=== PATIENT | female | born 1980 | race African-American/Black ===

== ENCOUNTER 2020-08-09 10:39 | Emergency (ER) | payer OTHER ==
--- OUTSIDE RECORDS SUMMARY | 2020-08-09 10:44 | XMS REPORT | Continuity of Care Document ---
:1980 Author Organization [facility] t Address [address] [place] [place] [address] Care Team Providers Name Role Phone Phuong Mendoza DO Primary Care Physician Jason DO Attending Clinician Phuong Mendoza DO Attending Clinician JASON Attending Clinician Unavailable Maryse WIGGINS, Varun Attending Clinician Payers Payer Name Policy Type Policy Effective Date Expiration Date Sour ce Number [facility] [id number] 2020 [facility] 0 00:00:[address] [facility] CHOICE [id number] 2020-Nhrhepf986- [id number]/POS [facility] [id number] 2020 [place] CHOICE EXCHANGECOM 0 00:00:00 Method ist HLTH [facility] EXCHANGE [id number] 400 2020-PresentE xchange Problems Condition Condition Condition Status Onset Resolution Last Treating Co mments Source Name Details Category Date Date Treatment Clinician Date Type 2 Type 2 Disease Active 2017-03 [place] diabetes diabetes 0-16 Method i mellitus mellitus 00:00: st with with 00 complicati complicati on, on, without without long-term long-term current current use of use of insulin insulin Allergies, Adverse Reactions, Alerts This patient has no known allergies or adverse reactions. Family History Family Member Diagnosis Comments Start Date Stop Date Source Natural father No Known Problems Jelena artis [facility] Natural mother Diabetes [facility] thodist Social History Social Habit Start Date Stop Date Quantity Comments Source Sex Assigned At [facility] Exposure to Not sure [facility] - SARS-CoV2 [facility] (event) Tobacco use and 2017-12-14 2017-12-14 Never used [facility] ethodist exposure 00:00:00 00:00:00 Alcohol intake 2017-12-14 2017-12-14 Current [facility] thodist 00:00:00 00:00:00 non-drinker of alcohol (finding) Smoking Status Start Date Stop Date Source Never smoker [place] Methodis Medications Ordered Filled Start Stop Current Ordering Indication Dosage Frequency Signature Comments Components Source Medication Medication Date Date Medication? Clinician (SIG) Name Name sulfamethox 2020- No 1{tbl} Q.5D Take [address] azole-trime -12 04-10 tablet by Kelly kes - thoprim 02:48: 00:00 mouth 2 Medica l (BACTRIM,SE 28 :00 (two) Center PTRA) times 400-80 mg daily. per tablet metFORMIN Yes 500mg Take [address] [facility] (GLUCOPHAGE 6-10 mg by [facility] - ) 500 MG 02:39: mouth 2 Medica l tablet 36 (two) Center times daily with breakfast and dinner. diphenhydrA 2020- Yes 25mg Take [address] [facility] MINE 6- 07-10 tablet (25 [facility] - (BENADRYL) 00:00: 23:59 mg total) edical 25 mg 00 :00 by mouth Center tablet every 6 (six) hours as needed for Itching or Allergies for up to 30 days. clindamycin 2020- Yes 300mg Q.[id number] Take [address] [facility] (CLEOCIN) 6- 06-20 [id number] capsule [facility] - 300 MG 00:00: 23:59 3D (300 mg Medical capsule 00 :00 total) by Center mouth 3 (three) times daily for 10 days. famotidine 2020- Yes 40mg QD Take [address] [facility] [address] (PEPCID) 40 6- 06-15 tablet (40 L ukes - MG tablet 00:00: 23:59 mg total) Oh dical 00 :00 by mouth Center daily for 5 doses. metFORMIN 2020- Yes Type 2 1000mg Q.5D Take 2 [place] (GLUCOPHAGE 6-04 07-04 diabetes tablets Methodi ) 500 mg 00:00: 23:59 mellitus (1,[address] tablet 00 :00 with total) by complicatio mouth 2 n, without (two) long-term times a current use day with of insulin meals for ([facility]) 30 days. sulfamethox 2020- Yes 1{tbl} Q.5D Take 1 [place] azole-trime 6- 06-11 tablet by Oh thodi thoprim 00:00: 23:[address] (BACTRIM 00 :00 (two) SS) 400-80 times a mg per day for 7 tablet days. metFORMIN 2020- No Type 2 TAKE 1 Jelena ston (GLUCOPHAGE 3-05 06-04 diabetes TABLET(500 Methodi ) 500 mg 00:00: 00:00 mellitus MG) BY st tablet 00 :00 with MOUTH complicatio TWICE n, without DAILY WITH long-term MEALS current use of insulin ([facility]) metFORMIN 2020- No Type 2 TAKE 1 Jelena ston (GLUCOPHAGE 8-26 03-05 diabetes TABLET(500 Methodi ) 500 mg 00:00: 00:00 mellitus MG) BY st tablet 00 :00 with MOUTH complicatio TWICE n, without DAILY WITH long-term MEALS current use of insulin ([facility]) metFORMIN 2019- No Type 2 TAKE 1 Jelena ston (GLUCOPHAGE 2-28 08-26 diabetes TABLET(500 Methodi ) 500 mg 00:00: 00:00 mellitus MG) BY st tablet 00 :00 with MOUTH complicatio TWICE n, without DAILY WITH long-term MEALS current use of insulin ([facility]) Vital Signs Vital Name Observation Time Observation Value Comments Source Systolic blood 2020-08-08 02:29:00 132 mm[Hg] [facility] Diastolic blood 2020-08-08 02:29:00 79 mm[Hg] [facility] S t [facility] Heart rate 2020-08-08 02:29:00 112 /min ELIEZER [facility] Body temperature 2020-08-08 02:29:00 37.17 Saba [facility] Respiratory rate 2020-08-08 02:29:00 18 /min [facility] Oxygen saturation in 2020-08-08 02:29:00 100 /min [facility] - Arterial blood by Medical Ce nter Pulse oximetry Body weight 2020-08-07 22:49:00 78.472 kg [facility] Systolic blood 2020-08-02 22:17:00 156 mm[Hg] [place] pressure Diastolic blood 2020-08-02 22:17:00 70 mm[Hg] [place] [facility] pressure Heart rate 2020-08-02 22:00:00 106 /min [place] [facility] Respiratory rate 2020-08-02 22:00:00 17 /min [place] [facility] Oxygen saturation in 2020-08-02 22:00:00 99 /min [place] [facility] Arterial blood by Pulse oximetry Body temperature 2020-08-02 21:22:00 36.39 Saba Nicole [place] [facility] Procedures Procedure Date / Time Performing Clinician Source Performed POCT-GLUCOSE METER 2020-08-08 02:09:00 Jason, Will [facility] URINALYSIS W/ 2020-08-08 00:05:00 Jason, Will [facility] SCREEN, URINE 2020-08-08 00:05:00 Jason, Will [facility] CBC W/PLT COUNT & AUTO 2020-08-07 23:55:00 Jason, Will [facility] S [facility] DIFFERENTIAL [facility] BASIC METABOLIC PANEL 2020-08-07 23:55:00 Jason, Will [facility] () [facility] KETONE, BLOOD 2020-08-07 23:55:00 Jason, Will [facility] PH, VENOUS 2020-08-07 23:55:00 Jason, Will [facility] LACTIC ACID, VENOUS 2020-08-07 23:55:00 Jason, Will [facility] BLOOD CULTURE 2020-08-07 23:54:00 Jason, Will [facility] POCT-GLUCOSE METER 2020-08-07 22:58:[address] [facility] POC GLUCOSE 2020-08-02 21:46:00 Andrea Serra [place] [facility] Plan of Care Planned Activity Planned Date Details Comments Source Future Scheduled 2020-10-[address] [facility] - Test 00:00:00 (Season Ended) [code = [facility] INFLUENZA VACCINE (Season Ended)] Future Scheduled 2020-09-29 INFLUENZA VACCINE [place] Test 00:00:00 [code = INFLUENZA VACCINE] Future Scheduled 2020-03-[address] [facility] - Test 00:00:00 (12+) [code = [facility] DEPRESSION SCREENING (12+)] Future Scheduled 2000[facility]01[facility]01 [facility] malignant neoplasm of [facility] cervix (procedure) [code = 983765572] Future Scheduled 2000-01-01 Screening for [facility] thodist Test 00:00:00 malignant neoplasm of cervix (procedure) [code = 471433572] Future Scheduled 1997 DTAP/TDAP/TD VACCINES [facility] - Test 00:00:00 (1 - Tdap) [code = Medical C enter DTAP/TDAP/TD VACCINES (1 - Tdap)] Future Scheduled 1996 HEPATITIS C SCREENING [facility] - Test 00:00:00 [code = HEPATITIS C [facility] SCREENING] Future Scheduled 1996 Hepatitis C screening [place] Test 00:00:00 (procedure) [code = 995438908] Future Scheduled 1990 COVID-19 VACCINE (1) [facility] - Test 00:00:00 [code = COVID-[address] VACCINE (1)] Future Scheduled 1990 COVID-19 VACCINE (1) Jelena ston [facility] Test 00:00:00 [code = COVID-19 VACCINE (1)] Future Scheduled 1988 DIABETES: RETINAL EYE [place] Test 00:00:00 EXAM [code = DIABETES: RETINAL EYE EXAM] Future Scheduled 1988 DIABETIC FOOT EXAM [place] Test 00:00:00 [code = DIABETIC FOOT EXAM] Future Scheduled 1988 URINE MICROALBUMIN [place] Test 00:00:00 [code = URINE MICROALBUMIN] Encounters Start End Encounter Admission Attending Care Care Encounter Source Date/Time Date/Time Type Type Clinicians Facility Department ID 2020-08-02 2020-08-02 Emergency SANTOS SERRA 064 [id number] [place] 00:00:00 00:00:00 ANDREA [address] Results Test Description Test Time Test Comments Results Result Comments Source POC-Glucose meter 2020-08-08 02:21:00 Test Item Value Reference Range Interpretation Comme nts POC-Glucose Meter (test code = 326 mg/dL 70-110 H : TESTED AT [facility] [address]) [facility], [address]: Jelly Filter Tender/Techni tony ID = [id number] for Jeancarlos Chapa Lab Interpretation (test code = Abnormal 58537-9) [facility] [id number] 02:21:00 Test Item Value Reference Range Interpretation Comments POC-GLUCOSE METER 326 mg/dL 70-110 H : TESTED A T [facility] [address] (BEAKER) (test code = BERTNE R [facility], 1538) [address]: Jelly Filter Tender/Techni tony ID = [id number] for Jeancarlos Marquez CBC with platelet count + automated [id number] 01:45:00 Test Item Value Reference Range Interpretation Comments WBC (test code = 6690-2) 8.3 See_Comment [A utomated message] The system [employer] generated this result transmitted ref erence range: 3.5 - 10 .5 K/L. The refe rence range was not u sed to interpret this result as normal/abnor mal. RBC (test code = 789-8) 4.28 See_Comment [Au tomated message] The system [employer] generated this result transmitted ref erence range: 3.93 - 5 .22 M/L. The refe rence range was not u sed to interpret this result as normal/abnor mal. MCHC (test code = 786-4) 33.8 See_Comment [A utomated message] The system [employer] generated this result transmitted ref erence range: 32.2 - 3 5.5 GM/DL. The refe rence range was not u sed to interpret this result as normal/abnor mal. Hematocrit (test code = 36.7 % 34.1-44.9 4544-3) MCV (test code = 787-2) 85.7 fL 79.4-94.8 MCH (test code = 785-6) 29.0 pg 25.6-32.2 RDW (test code = 788-0) 12.6 % 11.7-14.4 Platelets (test code = 251 See_Comment [Aut omated message] 777-3) The system [employer] generated this result transmitted ref erence range: 150 - 45 0 K/CU MM. The referen ce range was not u sed to interpret this result as normal/abnor mal. MPV (test code = 12.0 fL 9.4-12.3 81423-5) % Neutros (test code = 86 % 429) % Lymphs (test code = 6 % 430) % Monos (test code = 3 % 431) % Eos (test code = 432) 3 % % Baso (test code = 437) 0 % # Neutros (test code = 7.13 See_Comment H [Aut omated message] 670) The system [employer] generated this result transmitted ref erence range: 1.56 - 6 .13 K/L. The refe rence range was not u sed to interpret this result as normal/abnor mal. # Lymphs (test code = 0.46 See_Comment L [Auto mated message] 414) The system [employer] generated this result transmitted ref erence range: 1.18 - 3 .74 K/L. The refe rence range was not u sed to interpret this result as normal/abnor mal. # Monos (test code = 0.22 See_Comment L [Autom ated message] 415) The system [employer] generated this result transmitted ref erence range: 0.24 - 0 .36 K/L. The refe rence range was not u sed to interpret this result as normal/abnor mal. # Eos (test code = 416) 0.24 See_Comment [Au tomated message] The system [employer] generated this result transmitted ref erence range: 0.04 - 0 .36 K/L. The refe rence range was not u sed to interpret this result as normal/abnor mal. # Baso (test code = 417) 0.00 See_Comment L [A utomated message] The system [employer] generated this result transmitted ref erence range: 0.01 - 0 .08 K/L. The refe rence range was not u sed to interpret this result as normal/abnor mal. Immature 2 % 0-1 H Granulocytes-Relative (test code = 2801) Lab Interpretation (test Abnormal code = 62404-9) [facility] W/PLT COUNT & AUTO [id number] 01:45:00 Test Item Value Reference Range Interpretation Comments WHITE BLOOD CELL COUNT (BEAKER) 8.3 K/ L 3.5-10.5 (test code = 775) RED BLOOD CELL COUNT (BEAKER) 4.28 M/ L 3.93-5.22 (test code = 761) HEMOGLOBIN (BEAKER) (test code = 12.4 GM/DL 11.2-15.7 410) HEMATOCRIT (BEAKER) (test code = 36.7 % 34.1-44.9 411) MEAN CORPUSCULAR VOLUME (BEAKER) 85.7 fL 79.4-94.8 (test code = 753) MEAN CORPUSCULAR HEMOGLOBIN 29.0 pg 25.6-32.2 (BEAKER) (test code = 751) MEAN CORPUSCULAR HEMOGLOBIN CONC 33.8 GM/DL 32.2-35.5 (BEAKER) (test code = 752) RED CELL DISTRIBUTION WIDTH 12.6 % 11.7-14.4 (BEAKER) (test code = 412) PLATELET COUNT (BEAKER) (test 251 K/CU MM 150-450 code = 756) MEAN PLATELET VOLUME (BEAKER) 12.0 fL 9.4-12.3 (test code = 754) NEUTROPHILS RELATIVE PERCENT 86 % (BEAKER) (test code = 429) LYMPHOCYTES RELATIVE PERCENT 6 % (BEAKER) (test code = 430) MONOCYTES RELATIVE PERCENT 3 % (BEAKER) (test code = 431) EOSINOPHILS RELATIVE PERCENT 3 % (BEAKER) (test code = 432) BASOPHILS RELATIVE PERCENT 0 % (BEAKER) (test code = 437) NEUTROPHILS ABSOLUTE COUNT 7.13 K/ L 1.56-6.13 H (BEAKER) (test code = 670) LYMPHOCYTES ABSOLUTE COUNT 0.46 K/ L 1.18-3.74 L (BEAKER) (test code = 414) MONOCYTES ABSOLUTE COUNT (BEAKER) 0.22 K/ L 0.24-0.36 L (test code = 415) EOSINOPHILS ABSOLUTE COUNT 0.24 K/ L 0.04-0.36 (BEAKER) (test code = 416) BASOPHILS ABSOLUTE COUNT (BEAKER) 0.00 K/ L 0.01-0.08 L (test code = 417) IMMATURE GRANULOCYTES-RELATIVE 2 % 0-1 H PERCENT (BEAKER) (test code = 2801) Basic Metabolic [id number] 00:32:00 Test Item Value Reference Range Interpretation Comments Sodium (test code = 126 meq/L 135-148 L 2951-2) Potassium (test code = 3.6 meq/L 3.6-5.5 2823-3) Chloride (test code = 94 meq/L 98-106 L 2075-0) CO2 (test code = 20 meq/L 24-32 L 2028-9) BUN (test code = 17 mg/dL 12-24 3094-0) Creatinine (test code = 0.77 mg/dL 0.5-1.2 2160-0) Glucose (test code = 491 mg/dL 70-110 HH 2345-7) Calcium (test code = 9.2 mg/dL 8.5-10.5 50995-2) EGFR (test code = [place] [address]-4) CLINICAL DATA T O CALCULATE ESTIM ATED GFR. Lab Interpretation Abnormal (test code = 09891-1) [facility] [id number] 00:32:00 Test Item Value Reference Range Interpretation Comments SODIUM (BEAKER) (test 126 meq/L 135-148 L code = 381) POTASSIUM (BEAKER) 3.6 meq/L 3.6-5.5 (test code = 379) CHLORIDE (BEAKER) 94 meq/L 98-106 L (test code = 382) CO2 (BEAKER) (test 20 meq/L 24-32 L code = 355) BLOOD UREA NITROGEN 17 mg/dL 12-24 (BEAKER) (test code = 354) CREATININE (BEAKER) 0.77 mg/dL 0.50-1.20 (test code = 358) GLUCOSE RANDOM 491 mg/dL 70-110 HH (BEAKER) (test code = 652) CALCIUM (BEAKER) 9.2 mg/dL 8.5-10.5 (test code = 697) EGFR (BEAKER) (test INSUFFIC IENT CLINICAL code = 1092) DATA TO CALCULA TE ESTIMATED GFR. Urinalysis w/[id number] 00:27:00 Test Item Value Reference Range Interpretation Comments Color, UA (test code = Yellow 5778-6) Clarity, UA (test code = Hazy 5767-9) Specific [place], UA 1.015 1.001-1.035 (test code = 5811-5) pH, UA (test code = 6.0 5.0-8.0 5803-2) Protein, UA (test code = Negative Negative 69210-6) Glucose, UA (test code = 500 mg/dL Negative A 365) Ketones, UA (test code = 40 mg/dL Negative A 2514-8) Bilirubin, UA (test code Negative Negative = 75818-5) Blood, UA (test code = Negative Negative 17074-1) Nitrite, UA (test code = Negative Negative 5802-4) Leukocytes, UA (test Negative Negative code = 5799-2) Urobilinogen, UA (test 0.2 mg/dL 0.2-1 code = 13652-3) Yeast (test code = Few 91595-3) RBC, UA (test code = None Seen See_Comment [Autom ated message] 799-7) The system [employer] generated this result transmit ayesha reference range : /HPF. The refer ence range was not u sed to interpret th is result as normal/abnormal . WBC, UA (test code = None Seen See_Comment [Autom ated message] 75681-9) The system [employer] generated this result transmit ayesha reference range : /HPF. The refer ence range was not u sed to interpret th is result as normal/abnormal . SQUAMOUS EPITHELIAL 20-50 See_Comment [Automa ayesha message] (test code = 80241-8) The sy stem which generated this result transmit ayesha reference range : /HPF. The refer ence range was not u sed to interpret th is result as normal/abnormal . Specimen Source (test code = 2795) Lab Interpretation (test Abnormal code = 49009-7) [facility] [id number] 00:27:00 Test Item Value Reference Range Interpretation Comments COLOR (BEAKER) (test code = Yellow 470) CLARITY (BEAKER) (test code = Hazy 469) SPECIFIC GRAVITY UA (BEAKER) 1.015 1.001-1.035 (test code = 468) PH UA (BEAKER) (test code = 6.0 5.0-8.0 467) PROTEIN UA (BEAKER) (test code Negative Negative = 464) GLUCOSE UA (BEAKER) (test code 500 mg/dL Negative A = 365) KETONES UA (BEAKER) (test code 40 mg/dL Negative A = 371) BILIRUBIN UA (BEAKER) (test Negative Negative code = 462) BLOOD UA (BEAKER) (test code = Negative Negative 461) NITRITE UA (BEAKER) (test code Negative Negative = 465) LEUKOCYTE ESTERASE UA (BEAKER) Negative Negative (test code = 466) UROBILINOGEN UA (BEAKER) (test 0.2 mg/dL 0.2-1.0 code = 463) YEAST (BEAKER) (test code = Few 1585) RBC UA-MANUAL (BEAKER) (test None Seen /HPF code = 1659) WBC UA-MANUAL (BEAKER) (test None Seen /HPF code = 1661) SQUAMOUS EPITHELIAL MANUAL 20-50 /HPF (BEAKER) (test code = 1663) SOURCE(BEAKER) (test code = 2795) screen, [id number] 00:26:00 Test Item Value Reference Range Interpretation Comments Preg Test, Ur (test code = 2112-1) Negative [facility], [id number] 00:26:00 Test Item Value Reference Range Interpretation Comments TEST URINE (BEAKER) (test Negative code = 583) Lactic acid, [id number] 00:22:00 Test Item Value Reference Range Interpretation Comments Lactate, Venous (test code = 1.60 mmol/L 0.5-2.2 2872) Lab Interpretation (test code = Normal 48473-3) [facility], [id number] 00:22:00 Test Item Value Reference Range Interpretation Comments LACTATE BLOOD VENOUS (2) (BEAKER) 1.60 mmol/L 0.50-2.20 (test code = 2872) Ketones, [id number] 00:09:00 Test Item Value Reference Range Interpretation Comments Ketones, Blood (test code = 1103) 1.9 mmol/L <0.4 H Lab Interpretation (test code = Abnormal 48419-8) [facility], [id number] 00:09:00 Test Item Value Reference Range Interpretation Comments KETONES, BLOOD (BEAKER) (test code 1.9 mmol/L <0.4 H = 1103) pH, [id number] 00:08:00 Test Item Value Reference Range Interpretation Comments pH, Chan (test code = 2746-6) 7.38 7.32-7.42 Lab Interpretation (test code = Normal 14879-5) [facility], [id number] 00:08:00 Test Item Value Reference Range Interpretation Comments PH VENOUS (BEAKER) (test code = 701) 7.38 7.32-7.42 POCT-GLUCOSE [id number] 23:09:00 Test Item Value Reference Range Interpretation Comments POC-GLUCOSE METER 482 mg/dL 70-110 HH : TESTED A T [facility] 6720 (BEAKER) (test code = JOSE COBURN MD, 1538) [address]: Jelly Filter Tender/Techni tony ID = [id number] for Jeancarlos Marquez POC [id number] 21:50:04 Test Item Value Reference Range Interpretation Comments POC glucose (test code 328 mg/dL 65-99 H Opera gabriela Name: Weelva = 47828-8) YangDevice ID : [id number] able: [facility] Notified way inspector Interpretation Abnormal (test code = 11996-2) [place]
[2020-08-09] MEDS ORDERED: LIDOCAINE 1% MPF 5 ML VIAL ONE (11:52)
--- NOTE | 2020-08-09 12:56 | ER ---
Nurse's Notes [facility] Name: Jose Mckenzie Age: 39 yrs Sex: Female : 1980 Arrival Date: 08/09/2020 Time: 10:45 Bed 23 Private MD: Diagnosis: Cutaneous abscess of head [any part, except face] Presentation: 08/09 11:25 Chief complaint: Patient states: abscess to back of neck , has been seen by a couple iw different ER's is currently on Clindamycin, not getting better, feels like swelling has increased and it's more painful. Coronavirus screen: At this time, the client does not indicate any symptoms associated with coronavirus-19. Ebola Screen: Patient negative for fever greater than or equal to 101.5 degrees Fahrenheit, and additional compatible Ebola Virus Disease symptoms Patient denies exposure to infectious person. Patient denies travel to an Ebola-affected area in the 21 days before illness onset. No symptoms or risks identified at this time. Initial Sepsis Screen: Does the patient meet any 2 criteria? No. Patient's initial sepsis screen is negative. Does the patient have a suspected source of infection? No. Patient's initial sepsis screen is negative. Risk Assessment: Do you want to hurt yourself or someone else? Patient reports no desire to harm self or others. Onset of symptoms was August 03, 2019. 11:25 Method Of Arrival: Ambulatory iw 11:25 Acuity: KEVIN 4 iw Triage Assessment: 11:30 General: Appears in no apparent distress. Behavior is calm, cooperative. 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 - Social history:: Smoking status: Patient denies any tobacco usage or history of. Screenin:41 Abuse screen: Denies threats or abuse. Denies injuries from another. Nutritional iw screening: No deficits noted. Tuberculosis screening: No symptoms or risk factors identified. Fall Risk None identified. Assessment: 11:30 General: Appears in no apparent distress. Behavior is calm, cooperative. Pain: iw Complains of pain in scalp. Neuro: Level of Consciousness is awake, alert, obeys commands, Oriented to person, place, time, situation, Moves all extremities. Full function. Cardiovascular: Patient's skin is warm and dry. Respiratory: Respiratory effort is even, unlabored, Respiratory pattern is regular. GI: No signs and/or symptoms were reported involving the gastrointestinal system. Derm: Skin is healthy with good turgor, Abscess located on right posterior aspect of neck is quarter sized, has purulent drainage, was lanced by patient prior to arrival. Musculoskeletal: Range of motion: intact in all extremities. Vital Signs: 11:25 BP 183 / 90; Pulse 118; Resp 18; Pulse Ox 98% on R/A; Weight 78.47 kg; Height 5 ft. 3 iw in. (160.02 cm); Pain 8/10; 11:35 Pulse 105; iw 11:25 Body Mass Index 30.65 (78.47 kg, 160.02 cm) iw ED Course: 10:45 Patient arrived in ED. as 11:19 [facility]au[facility] Barton F[facility]-C [facility]. kb 11:19 Neil De La Garza MD is Attending Physician. kb 11:25 Marline Squires, SONNY is Primary Nurse. iw 11:28 Triage completed. iw 11:30 Arm band placed on. iw 11:30 Patient has correct armband on for positive identification. iw 13:20 Assist provider with I \T\ D: of an abscess on Set up I\T\D tray. Performed by Pauly BELTRAN Culture sent to lab. Dressing with 4X4s, tape Patient tolerated well. Patient did not have IV access during this emergency room visit. Administered Medications: No medications were administered Outcome: 12:55 Discharge ordered by . kb 13:41 Discharged to home ambulatory, with family. iw 13:41 Condition: good 13:41 Discharge instructions given to patient, family, Instructed on discharge instructions, follow up and referral plans. medication usage, Demonstrated understanding of instructions, follow-up care, medications, wound care, Prescriptions given X 1. 13:42 Patient left the ED. aj1 Addendum: 08/12/2020 07:34 Addendum: Culture Results: Positive wound culture. No further action required. Other: i w pt is currently on Clindamycin, no further intervention needed . Signatures: Pauly Barton FNP-C KAVYA-Yuly Gibson RN RN aj1 Divya Cornell as Marline Squires RN RN iw Corrections: (The following items were deleted from the chart) 07:37 07:34 Addendum: Culture Results: rosemarie houston
--- NOTE | 2020-08-09 12:56 | EDPHYS ---
Physician Documentation [facility] Name: Jose Mckenzie Age: 39 yrs Sex: Female : 1980 Arrival Date: 08/09/2020 Time: 10:45 Bed 23 Private MD: ED Physician Neil De La Garza HPI: 08/09 19:44 This 39 yrs old Black Female presents to ER via Ambulatory with complaints of Boil. kb 19:44 The patient presents with an abscess of the right base of the skull. Description: kb draining, erythematous, swollen. Onset: The symptoms/episode began/occurred last week. Possible cause(s): unknown. Associated signs and symptoms: Pertinent positives: discharge, drainage, erythema, swelling. Modifying factors: the symptoms are alleviated by nothing, the symptoms are aggravated by pressure, squeezing the lesion and expressing the contents, touching. Severity of symptoms: At their worst the symptoms were moderate, in the emergency department the symptoms are unchanged. The patient has not experienced similar symptoms in the past. The patient has been recently seen at the [facility] Emergency Department, last week, for similar complaints was given a prescription for antibiotics. 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 - Social history:: Smoking status: Patient denies any tobacco usage or history of. ROS: 19:43 Constitutional: Negative for fever, chills, and weight loss. kb 19:43 Skin: Positive for abscess, erythema, of the right base of the skull. 19:43 All other systems are negative. Exam: 19:42 Constitutional: This is a well developed, well nourished patient who is awake, alert, kb and in no acute distress. Head/Face: Normocephalic, atraumatic. ENT: Moist Mucous membranes Respiratory: Respirations even and unlabored. No increased work of breathing, no retractions or nasal flaring. MS/ Extremity: Pulses equal, no cyanosis. Neurovascular intact. Full, normal range of motion. Neuro: Awake and alert, GCS 15, oriented to person, place, time, and situation. Moves all extremities. Normal gait. Psych: Awake, alert, with orientation to person, place and time. Behavior, mood, and affect are within normal limits. 19:42 Skin: abscess, that is moderate sized, of the right base of the skull, with drainage, with fluctuance, with induration. Vital Signs: 11:25 BP 183 / 90; Pulse 118; Resp 18; Pulse Ox 98% on R/A; Weight 78.47 kg; Height 5 ft. 3 iw in. (160.02 cm); Pain 8/10; 11:35 Pulse 105; iw 11:25 Body Mass Index 30.65 (78.47 kg, 160.02 cm) iw Procedures: 19:42 I \T\ D: Incision and drainage was performed for an abscess of the right right base of kb the skull Prepped with Betadine, Anesthetized with 3 ml's 1% Lidocaine. Incised with #11 blade. Drained moderate amount purulent fluid. Dressing: sterile 4x4 gauze, the patient tolerated the procedure well. MDM: 11:19 Patient medically screened. 19:42 Data reviewed: vital signs, nurses notes. Data interpreted: Pulse oximetry: on room air kb is 98 %. Interpretation: normal. Counseling: I had a detailed discussion with the patient and/or guardian regarding: the historical points, exam findings, and any diagnostic results supporting the discharge/admit diagnosis, the need for outpatient follow up, a general surgeon, to return to the emergency department if symptoms worsen or persist or if there are any questions or concerns that arise at home. 08/09 12:39 Order name: Wound Culture 08/09 11:21 Order name: I\T\D Setup; Complete Time: 11:35 Administered Medications: No medications were administered Disposition: 08/09/20 12:55 Discharged to Home. Impression: Cutaneous abscess of head [any part, except face]. - Condition is Stable. - Discharge Instructions: Skin Abscess, [id number], Incision and Drainage, Care After. - Prescriptions for Diclofenac Sodium 75 mg Oral Tablet, Delayed Release (E.C.) - take 1 tablet by ORAL route 2 times per day As needed; 30 tablet. - Medication Reconciliation Form, Thank You Letter, Antibiotic Education, Prescription Opioid Use form. - Follow up: Emergency Department; When: As needed; Reason: Worsening of condition. Follow up: Private Physician; When: 2 - 3 days; Reason: Recheck today's complaints, Continuance of care, Re-evaluation by your physician. - Notes: Continue prescribed antibiotics Addendum: 08/12/2020 11:03 Co-signature as Attending Physician, Neil De La Garza MD I agree with the assessment and k dr plan of care. Signatures: Dispatcher [employer] EDOH Pauly Barton, KAVYA-C IRONER MACHINE-CkYuly Dimas RN RN aj1 Neil De La Garza MD MD kdr Marline Squires RN RN iw Corrections: (The following items were deleted from the chart) 08/09 13:42 12:55 08/09/2020 12:55 Discharged to Home. Impression: Cutaneous abscess of head [any aj1 part, except face]. Condition is Stable. Forms are Medication Reconciliation Form, Thank You Letter, Antibiotic Education, Prescription Opioid Use. Follow up: Emergency Department; When: As needed; Reason: Worsening of condition. Follow up: Private Physician; When: 2 - 3 days; Reason: Recheck today's complaints, Continuance of care, Re-evaluation by your physician. kb
[2020-08-09 13:49] VITALS: BP 183/90; O2SAT 98
[2020-08-09] MEDS ORDERED: HYDROCODONE/APAP 7.5/325 MG TAB ONE (13:59)
== END 2020-08-09 13:42 | disposition home or self-care (01) ==
LOC: ER 10:39
PROC: 0H90XZZ Drainage of Scalp Skin, External Approach (ICD-10-PCS; principal; 2020-08-09)
DX: L02.811 Cutaneous abscess of head [any part, except face] (principal); E11.9 Type 2 diabetes mellitus without complications; Z79.84 Long term (current) use of oral hypoglycemic drugs
CPT/HCPCS: 87070; 87077; 87186; 87205; 99283